=== PATIENT | female | born 1940 | race Caucasian/White ===

== ENCOUNTER 2016-06-10 11:17 | Outpatient (RCR) | payer MEDICARE, OTHER | END 2016-06-19 13:29 | disposition home or self-care (01) | PROVIDERS: ATTEND Orthopaedic Surgery | DX: Z47.1 Aftercare following joint replacement surgery (principal); Z96.651 Presence of right artificial knee joint ==

== ENCOUNTER 2019-02-15 05:31 | Outpatient (CLI) | payer MEDICARE, OTHER ==
[~2019-02-15] VITALS: Ht 174 cm; Wt 81.6 kg
[2019-02-15] MEDS ORDERED: VIT1CAPS44 PO (12:27)
== END 2019-02-15 12:38 ==
LOC: PREOP 05:31
PROVIDERS: ATTEND Specialist
DX: Z01.818 Encounter for other preprocedural examination (principal); H25.89 Other age-related cataract

== ENCOUNTER 2019-02-18 06:07 | Day surgery (SDC) | payer MEDICARE, OTHER ==
[~2019-02-18] VITALS: Ht 174 cm; Wt 81.6 kg
[~2019-02-18 06:07] MED LIST: VIT1CAPS44 PO
[2019-02-18] MEDS ORDERED: TIMOLOL MALEATE 0.5% 5 ML (TIMOPTIC) BTL OU PRN (06:15)
[2019-02-18] MEDS ORDERED: LIDOCAINE PF 1% 2 ML AMP IR PRN (06:15)
[2019-02-18] MEDS ORDERED: POVIDONE (BETADINE) OPHTH SOLN 5% 30 ML OP ONE (06:15)
[2019-02-18] MEDS ORDERED: MOXIFLOXACIN OPHTH SOLN 5 MG/ML 0.3 ML SYRINGE OP ONE (06:15)
[2019-02-18 06:25] VITALS: BP 173/89
[2019-02-18] MEDS: TETRACAINE 0.5% OPHTH SOLN 4 ML BTL (SINGLE DOSE ONLY) OU PRN ×4 (06:26→06:51)
[2019-02-18] MEDS: CYCLOPENTOLATE 1% (CYCLOGYL) 2 ML DROPS OP SCH ×3 (06:38→06:51)
[2019-02-18] MEDS: PHENYLEPHRINE 10% OPHTH (NEO-SYN) 5 ML BTL OU SCH ×3 (06:38→06:51)
[2019-02-18] MEDS ORDERED: MIDAZOLAM 2 MG/2 ML (VERSED) VIAL ONE (06:50)
--- NOTE | 2019-02-18 06:50 | Ophthalmologist Pre-Op Note ---
Pre-Operative Progress Note H&P Reviewed The H&P was reviewed, patient examined and no changes noted. Date H&P Reviewed: Feb 18, 2019 Time H&P Reviewed: 06:50 Pre-Op Dx Cataract, Right Eye MICHAEL VARELA MD Feb 18, 2019 06:50
--- NOTE | 2019-02-18 07:23 | Ophthalmology Operative Report ---
Cataract removal/placement IOL PREOPERATIVE DIAGNOSIS: Cataract Right Eye POSTOPERATIVE DIAGNOSIS: Cataract Right Eye PROCEDURE: Cataract removal and placement of posterior chamber implant, right eye SURGEON: Elan Varela ANESTHESIA: Topical with sedation COMPLICATIONS: None ESTIMATED BLOOD LOSS: Minimal DESCRIPTION OF PROCEDURE: After proper informed consent was obtained, the patient, a 78 female, was taken to the Operating Room and the right eye was anesthetized with tetracaine. The right eye was then prepped and draped in the usual manner. A wire lid speculum was placed. A paracentesis was made at the left hand position. Preservative free lidocaine was injected into the anterior chamber followed by viscoelastic. A clear corneal incision was made in the temporal position. A capsulorrhexis was preformed and the central nuclear and cortical material were removed. The posterior capsule was polished and Nikolay 21.0 AU00T0 IOL was placed into the capsular bag. The residual viscoelastic was aspirated and balanced saline solution was injected into the anterior chamber. Moxifloxacin was injected into the anterior chamber. The wound was checked and found to be water tight. The patient tolerated the procedure well without complications. ELAN VARELA MD Feb 18, 2019 07:23
[2019-02-18 07:30] VITALS: BP 145/76
[2019-02-18] MEDS ORDERED: acetaZOLAMIDE ER 500 MG CAP (DIAMOX SEQUELS) PO ONE (07:30)
--- NOTE | 2019-02-18 12:46 | Anesthesia-General Post-Op ---
MAC Patient Condition Mental Status/LOC: Same as Preop Cardiovascular: Satisfactory Nausea/Vomiting: Absent Respiratory: Satisfactory Pain: Controlled Complications: Absent Post Op Complications Complications None Follow Up Care/Instructions Patient Instructions None needed. Anesthesiology Discharge Order Discharge Order Patient was seen this morning after the procedure and she was doing well, no complaints, stable vital signs, no apparent adverse anesthesia problems. ITZEL VALLEJO DO Feb 18, 2019 12:46
== END 2019-02-18 07:30 | disposition home or self-care (01) ==
LOC: SDC 06:07
PROVIDERS: ATTEND Specialist
DX: H25.11 Age-related nuclear cataract, right eye (principal); Z88.0 Allergy status to penicillin; Z91.040 Latex allergy status; Z91.048 Other nonmedicinal substance allergy status; Z96.651 Presence of right artificial knee joint

== ENCOUNTER 2019-02-25 06:00 | Day surgery (SDC) | payer MEDICARE, OTHER ==
[~2019-02-25] VITALS: Ht 172 cm; Wt 81.7 kg
[2019-02-25 06:15] VITALS: BP 130/65
[2019-02-25] MEDS ORDERED: TIMOLOL MALEATE 0.5% 5 ML (TIMOPTIC) BTL OU PRN (06:15)
[2019-02-25] MEDS ORDERED: LIDOCAINE PF 1% 2 ML AMP IR PRN (06:15)
[2019-02-25] MEDS ORDERED: POVIDONE (BETADINE) OPHTH SOLN 5% 30 ML OP ONE (06:15)
[2019-02-25] MEDS ORDERED: MOXIFLOXACIN OPHTH SOLN 5 MG/ML 0.3 ML SYRINGE OP ONE ×2 (06:15→12:00)
[2019-02-25] MEDS: TETRACAINE 0.5% OPHTH SOLN 4 ML BTL (SINGLE DOSE ONLY) OU PRN ×4 (06:17→06:38)
[2019-02-25] MEDS: CYCLOPENTOLATE 1% (CYCLOGYL) 2 ML DROPS OP SCH ×3 (06:28→06:38)
[2019-02-25] MEDS: PHENYLEPHRINE 10% OPHTH (NEO-SYN) 5 ML BTL OU SCH ×3 (06:28→06:38)
--- NOTE | 2019-02-25 06:50 | Ophthalmologist Pre-Op Note ---
Pre-Operative Progress Note H&P Reviewed The H&P was reviewed, patient examined and no changes noted. Date H&P Reviewed: Feb 25, 2019 Time H&P Reviewed: 06:50 Pre-Op Dx Cataract, Left Eye MICHAEL VARELA MD Feb 25, 2019 06:50
[2019-02-25] MEDS ORDERED: MIDAZOLAM 2 MG/2 ML (VERSED) VIAL ONE (06:57)
--- NOTE | 2019-02-25 07:24 | Ophthalmology Operative Report ---
Cataract removal/placement IOL PREOPERATIVE DIAGNOSIS: Cataract Left Eye POSTOPERATIVE DIAGNOSIS: Cataract Left Eye PROCEDURE: Cataract removal and placement of posterior chamber implant, left eye SURGEON: Elan Varela ANESTHESIA: Topical with sedation COMPLICATIONS: None ESTIMATED BLOOD LOSS: Minimal DESCRIPTION OF PROCEDURE: After proper informed consent was obtained, the patient, a 78 female, was taken to the Operating Room and the left eye was anesthetized with tetracaine. The left eye was then prepped and draped in the usual manner. A wire lid speculum was placed. A paracentesis was made at the left hand position. Preservative free lidocaine was injected into the anterior chamber followed by viscoelastic. A clear corneal incision was made in the temporal position. A capsulorrhexis was preformed and the central nuclear and cortical material were removed. The posterior capsule was polished and an Nikolay 21.5 AU00T0 was placed into the capsular bag. The residual viscoelastic was aspirated and balanced saline solution was injected into the anterior chamber. Moxifloxacin was injected into the anterior chamber. The wound was checked and found to be water tight. The patient tolerated the procedure well without complications. ELAN VARELA MD Feb 25, 2019 07:24
[2019-02-25] MEDS ORDERED: acetaZOLAMIDE ER 500 MG CAP (DIAMOX SEQUELS) PO ONE (07:30)
[2019-02-25 07:35] VITALS: BP 154/79
== END 2019-02-25 07:35 | disposition home or self-care (01) ==
LOC: SDC 06:00
PROVIDERS: ATTEND Specialist
DX: H25.12 Age-related nuclear cataract, left eye (principal); H35.30 Unspecified macular degeneration; Z96.651 Presence of right artificial knee joint; Z88.0 Allergy status to penicillin; Z88.8 Allergy status to other drugs, medicaments and biological substances; Z91.040 Latex allergy status

== ENCOUNTER 2022-01-16 22:14 | Emergency (ER) | payer MEDICARE, OTHER ==
[~2022-01-16] VITALS: Ht 172.7 cm; Wt 83.1 kg
[2022-01-16 22:35] LABS: BASOPHILS # (AUTO) 0.1 10^3/uL (0.0-0.1); BASOPHILS % (AUTO) 1 % (0-10); EOSINOPHILS # (AUTO) 0.2 10^3/uL (0.0-0.3); EOSINOPHILS % (AUTO) 3 % (0-10); HEMATOCRIT 42 % (35-52); HEMOGLOBIN 13.6 g/dL (11.5-16.0); LYMPHOCYTES % (AUTO) 33 % (12-44); MEAN CORPUSCULAR HEMOGLOBIN 32 pg (25-34); MEAN CORPUSCULAR HGB CONC 33 g/dL (32-36); MEAN CORPUSCULAR VOLUME 97 fL (80-99); MEAN PLATELET VOLUME 10.5 fL (9.0-12.2); MONOCYTES # (AUTO) 0.7 10^3/uL (0.0-1.0); MONOCYTES % (AUTO) 11 % (0-12); NEUTROPHILS # (AUTO) 3.1 10^3/uL (1.8-7.8); NEUTROPHILS % (AUTO) 51 % (42-75); PLATELET COUNT 168 10^3/uL (130-400)
--- NOTE | 2022-01-16 22:43 | ED General ---
General Chief Complaint: Lower Extremity Stated Complaint: BLEEDING FROM LEG Nursing Triage Note: PT ARRIVAL TO ER VIA [facility] AFTER PICKING SCAB ON LEG AND HAVING "SIGNIFICANT BLEEDING" FROM LEG. EMS STATES THAT THEY BELIEVE MAYBE A VERICOSE VEIN WAS THE CAUSE OF THE BLEEDING. 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 Source of Information: Patient Exam Limitations: No Limitations History of Present Illness Date Seen by Provider: Jan 16, 2022 Time Seen by Provider: 22:16 Initial Comments This 81-year-old woman presents to the emergency room with bleeding from a punctate wound on the left lower leg. Patient reports scratching off a small scab accidentally and having severe bleeding afterward. She arrives via EMS and EMS staff report there was approximately 200 mL of blood loss noted on scene. Pressure dressing was applied and the bleeding has since stopped. Patient does not take any blood thinning medications. She is noted to have numerous varicosities and superficial vessels on her legs. Allergies and Home Medications Allergies Coded Allergies: Penicillins (Verified Allergy, Unknown, 02/15/19) latex (Verified Allergy, Unknown, 02/15/19) nickel (Verified Allergy, Unknown, 02/15/19) nylon (Verified Allergy, Unknown, 02/15/19) Patient Home Medication List Home Medication List Reviewed: Yes Vit C/E/Zn/Coppr/Lutein/Zeaxan (Preservision Areds 2 Softgel) 1 Each Capsule, 1 EACH PO DAILY, (Reported) Entered as Reported by: KATIUSKA BARAJAS on 02/15/19 0357 Review of Systems Review of Systems Constitutional: no symptoms reported Cardiovascular: see HPI Skin: see HPI Psychiatric/Neurological: No Symptoms Reported Hematologic/Lymphatic: See HPI Past [id number] Hx Patient Social History Tobacco Use?: No Use of E-Cig and/or Vaping dev: No Substance use?: No Alcohol Use?: No Pt feels they are or have been: No Immunizations Up To Date Influenza Vaccine Up-to-Date: Yes; Up-to-Date COVID19 Vaccine 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 0.0oz. 81.958164ml; 27.00 BMI Method: General Appearance: No Apparent Distress, WD/WN HEENT: Normal ENT Inspection Respiratory: Lungs Clear, Normal Breath Sounds, No Accessory Muscle Use Cardiovascular: Regular Rate, Rhythm, No Edema, No Murmur Extremity: Other (Punctate wound on the left anterior lower leg that has stopped bleeding) Neurologic/Psychiatric: Alert, Oriented x3, No Motor/Sensory Deficits, Normal Mood/Affect Skin: Normal Color, Warm/Dry, Other (Numerous varicosities and superficial vessels on the lower extremities) Progress/Results/Core Measures Suspected Sepsis SIRS Temperature: Pulse: 80 Respiratory Rate: 16 Laboratory Tests 01/16/22 22:26: White Blood Count 6.0 Blood Pressure 159 /107 Mean: 124 Laboratory Tests 01/16/22 22:26: INR Comment 1.0, Platelet Count 168 Results/Orders Lab Results Laboratory Tests Test 01/16/22 22:26 Range/Units White Blood Count 6.0 4.3-11.0 10^3/uL Red Blood Count 4.26 3.80-5.11 10^6/uL Hemoglobin 13.6 11.5-16.0 g/dL Hematocrit 42 35-52 % Mean Corpuscular Volume 97 80-99 fL Mean Corpuscular Hemoglobin 32 25-34 pg Mean Corpuscular Hemoglobin Concent 33 32-36 g/dL Red Cell Distribution Width 13.9 10.0-14.5 % Platelet Count 168 130-400 10^3/uL Mean Platelet Volume 10.5 9.0-12.2 fL Immature Granulocyte % (Auto) 0 % Neutrophils (%) (Auto) 51 42-75 % Lymphocytes (%) (Auto) 33 12-44 % Monocytes (%) (Auto) 11 0-12 % Eosinophils (%) (Auto) 3 0-10 % Basophils (%) (Auto) 1 0-10 % Neutrophils # (Auto) 3.1 1.8-7.8 10^3/uL Lymphocytes # (Auto) 2.0 1.0-4.0 10^3/uL Monocytes # (Auto) 0.7 0.0-1.0 10^3/uL Eosinophils # (Auto) 0.2 0.0-0.3 10^3/uL Basophils # (Auto) 0.1 0.0-0.1 10^3/uL Immature Granulocyte # (Auto) 0.0 0.0-0.1 10^3/uL Prothrombin Time 13.1 12.2-14.7 SEC INR Comment 1.0 0.8-1.4 Activated Partial Thromboplast Time 29 24-35 SEC My Orders Orders - CHAPARRO BOB MD Cbc With Automated Diff (01/16/22 22:24) Protime With Inr (01/16/22 22:24) Partial Thromboplastin Time (01/16/22 22:24) Vital Signs/I&O 01/16/22 01/16/22 22:26 23:10 Pulse 80 78 Resp 16 16 B/P (MAP) 159/107 (124) 164/85 Pulse Ox 98 95 O2 Delivery Room Air Capillary Refill : Less Than 3 Seconds Blood Pressure Mean: 124 Progress Note : Progress Note CBC and coag panel were obtained to rule out blood dyscrasias or clotting abnormalities. They were unremarkable. See discharge instructions. There was no further bleeding in the ER. Coban and gauze light pressure dressing was applied. Departure Impression Primary Impression: Hemorrhage from wound Disposition: 01 HOME, SELF-CARE Condition: Improved Departure-Patient Inst. Referrals: NO,LOCAL PHYSICIAN (PCP) Primary Care Physician Patient Instructions: NO INSTRUCTIONS GIVEN Add. Discharge Instructions: If you can tolerate keeping the wound wrapped through the night, that would likely prevent recurrence of bleeding. Keep the wound covered with a Band-Aid or some other type of dressing for about a week. That will help reduce the risk of recurrent bleeding if the scab were to be disrupted. If the gauze sticks to the wound, do not try to force it off. Simply moisten the gauze with tap water and try to remove it in a few minutes. If bleeding returns, apply direct pressure for 15 to 20 minutes. If bleeding does not stop, return to the ER. If bleeding is extreme you may return to the emergency room immediately. Elevating your foot above the level of your heart should also help reduce bleeding. Call with questions or concerns. All discharge instructions reviewed with patient and/or family. Voiced understanding. CHAPARRO BOB MD Jan 16, 2022 22:43
[2022-01-16 22:49] LABS: PROTHROMBIN TIME PATIENT 13.1 SEC (12.2-14.7)
[2022-01-16 23:10] VITALS: BP 164/85
== END 2022-01-16 23:26 | disposition home or self-care (01) ==
LOC: EDUNIT# 22:14 → ER 22:16
DX: L76.22 Postprocedural hemorrhage of skin and subcutaneous tissue following other procedure (principal)
CPT/HCPCS: 36415; 85025; 85610; 85730; 99281